=== PATIENT | male | born 1960 ===

== ENCOUNTER 2019-11-16 15:59 | Outpatient (RCR) | payer BC, SELFPAY ==
--- NOTE | 2019-11-24 07:43 | PTOPEVAL ---
Thank you for referring this patient to [facility]. Please review, sign, date and return this plan of care [facility]. I agree with and certify that the following plan of care is medically necessary. Referring Physician Date Admitting Provider: Attending Provider: PHYSICIAN NOT ON STAFF Referring Provider: *PT Outpatient Evaluation Start: 11/16/19 16:12 Freq: Status: Active Protocol: Document 11/16/19 16:10 [facility] (Rec: 11/16/19 16:30 [facility] [id number]) Therapy Assessment Status Assessment Status Assessment Status Evaluation Evaluation Information Problem Diagnosis L rotator cuff tear, presurgical Onset 11/11/19 Subjective Information patient reports he has been Query Text:As Reported By Patient/ having pain in the L shoulder Family since late fall of this past year. he reports no injury. he reports he has pain and weakness with lifting past his shoulder level. he reports he has had an x-ray as of this date, but no mri. he reports he is planning to have surgery on the L shoulder, but must have therapy first per his insurance. patient reports he was injected last . 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 he reports he is unable to complete lifting or overhead activities with the L shoulder. Pain Assessment Timing of Pain Assessment Timing of Pain Assessment Assessment Pain Scale Pain Scale Used Numeric (1 - 10) Self Report Pain Assessment Left Shoulder(s) Reported Pain Level 6 Pain Description Burning,Stabbing Pain Frequency Acute,Continuous Current Pain Intensity 6 Lowest Pain Intensity 6 Greatest Pain Intensity 10 Pain Aggravating Factors Changing Position,Lifting Pain Score Pain Score 6: Self Report Upper Extremity Range of Motion Scapular/ Shoulder Range of Motion Left Shoulder Flexion - Active 90 Shoulder Flexion - Passive 145 Shoulder Medial Rotation - Active 45 Shoulder Lateral Rotation - Active 60 Right Shoulder Flexion - Active 135 Shoulder Flexion - Passive 165 Shoulder Medial Rotation - Active 50 Shoulder
--- NOTE | 2020-02-01 17:22 | PCPTNOTE ---
02/01/20- pt last seen 12/07. pt cancelled apt on 12/14 stating he had to have surgery. pt will be discharged on this date per evaluating therapist.-LINDSAY
== END 2019-12-07 08:55 | disposition home or self-care (01) ==
LOC: CHSPT 15:59
PROVIDERS: PCP Family Medicine
DX: M75.102 Unspecified rotator cuff tear or rupture of left shoulder, not specified as traumatic (principal)
CPT/HCPCS: 97014; 97110; 97161; G0283